=== PATIENT | male | born 1980 | race Two or more races ===

== ENCOUNTER 2019-08-24 09:34 | Emergency (ER) | payer BC, OTHER ==
[~2019-08-24] VITALS: Ht 172.7 cm; Wt 117.9 kg
[2019-08-24 10:07] VITALS: BP 134/83
[2019-08-24] MEDS ORDERED: METHOCARBAMOL 500 MG TAB PO ONE (12:00)
[2019-08-24] MEDS ORDERED: IBUPROFEN 800 MG TAB PO ONE (12:00)
== END 2019-08-24 12:25 | disposition home or self-care (01) ==
LOC: ER 09:34
DX: M54.5 Low back pain (principal); I10 Essential (primary) hypertension